=== PATIENT | male | born 1950 | race Caucasian/White ===

== ENCOUNTER 2020-10-29 11:58 | Outpatient (REF) | payer MEDICARE, BC, SELFPAY ==
[2020-10-29 14:06] LABS: Anion Gap 8.9 mmol/L (3-11); BUN 16 mg/dL (7-18); CO2 30.1 mmol/L (21.0-32.0); CREATININE 0.92 mg/dL (0.70-1.30); Calcium 9.1 mg/dL (8.5-10.1); Calculated LDL 83 mg/dL (<100); Chloride 99 mmol/L (98-107); Cholesterol 163 mg/dL (<200); Glucose 149 mg/dL (74-106); HDL Cholesterol 65 mg/dL (40-60); Potassium 4.2 mmol/L (3.5-5.1); Sodium 138 mmol/L (136-145); Triglyceride 79 mg/dL (<150)
== END 2020-10-29 12:18 ==
LOC: NCHCN 11:58
PROVIDERS: Visit Provider Internal Medicine
DX: I10 Essential (primary) hypertension (principal); Z13.220 Encounter for screening for lipoid disorders
CPT/HCPCS: 80048; 80061

== ENCOUNTER 2020-12-20 21:09 | Outpatient (REF) | payer MEDICARE, BC, SELFPAY ==
[2020-12-20 21:51] LABS: ALT 39 U/L (16-63); AST 20 U/L (15-37); Albumin 4.4 g/dL (3.4-5.0); Alkaline Phosphatase 50 U/L (46-116); Anion Gap 10.6 mmol/L (3-11); BUN 24 mg/dL (7-18); Bilirubin, Total 0.4 mg/dL (0.2-1.0); CO2 29.4 mmol/L (21.0-32.0); Calcium 9.9 mg/dL (8.5-10.1); Chloride 102 mmol/L (98-107); Glucose 111 mg/dL (74-106); Potassium 3.9 mmol/L (3.5-5.1); Sodium 142 mmol/L (136-145); Uric Acid 6.8 mg/dL (3.5-7.2)
[2020-12-22 09:51] LABS: HBs Antibody, Quant <3.1 mIU/mL (See Note); Hepatitis B Surface Ab Negative (See Note)
[2020-12-22 10:00] LABS: Hepatitis B Surface Ag Negative (Negative)
[2020-12-22 10:39] LABS: Hepatitis C Ab w Rflx HCV PCR Negative (Negative)
== END 2020-12-20 21:10 | disposition home or self-care (01) ==
LOC: NCHCN 21:09
PROVIDERS: Visit Provider Internal Medicine
DX: R94.5 Abnormal results of liver function studies (principal)
CPT/HCPCS: 80053; 86706; 86803; 87340; 84550

== ENCOUNTER 2022-05-02 11:12 | Outpatient (REF) | payer MEDICARE, BC, SELFPAY ==
[2022-05-02 15:49] LABS: COMMENT (LAB VIEW ONLY) 98.29 mg/dL; Microalb ug/mg Crea 12.3 ug/mg Cr
== END 2022-05-02 11:13 | disposition home or self-care (01) ==
LOC: NCHCN 11:12
PROVIDERS: Visit Provider Nurse Practitioner Family
DX: I10 Essential (primary) hypertension (principal); K76.0 Fatty (change of) liver, not elsewhere classified; R94.5 Abnormal results of liver function studies; E88.81 Metabolic syndrome and other insulin resistance
CPT/HCPCS: 82043; 82570

== ENCOUNTER 2023-08-13 12:53 | Outpatient (REF) | payer MEDICARE, BC, SELFPAY ==
[2023-08-13 16:05] LABS: COMMENT (LAB VIEW ONLY) 70.63 mg/dL
== END 2023-08-13 12:54 | disposition home or self-care (01) ==
LOC: NCHCN 12:53
PROVIDERS: Visit Provider Internal Medicine
DX: E11.9 Type 2 diabetes mellitus without complications (principal); F41.1 Generalized anxiety disorder
CPT/HCPCS: 82043; 82570

== ENCOUNTER 2024-08-11 17:20 | Outpatient (REF) | payer MEDICARE, BC, SELFPAY ==
[2024-08-11 22:16] LABS: COMMENT (LAB VIEW ONLY) 96.88 mg/dL; Microalb ug/mg Crea 7.4 ug/mg Cr
== END 2024-08-11 17:21 | disposition home or self-care (01) ==
LOC: NCHCN 17:20
PROVIDERS: Visit Provider Internal Medicine
DX: E11.9 Type 2 diabetes mellitus without complications (principal)
CPT/HCPCS: 82043; 82570

== ENCOUNTER 2024-11-04 14:03 | Outpatient (REF) | payer MEDICARE, BC, SELFPAY ==
[2024-11-04 15:30] LABS: HCT 43.2 % (40.0-50.0); HGB 14.3 g/dL (13.5-17.5); MCH 31.3 pg (27.0-33.0); MCHC 33.1 % (32.0-36.0); MCV 95 fL (80-95); MPV 9.8 fL (8.0-11.0); Platelet Count 183 10^3/uL (130-400); RBC 4.57 10^6/uL (4.36-5.78); RDW 12.8 % (11.8-14.1); RDW-SD 44.4 fL
[2024-11-04 16:13] LABS: ALT 24 U/L (16-63); AST 20 U/L (15-37); Albumin 4.1 g/dL (3.4-5.0); Alkaline Phosphatase 42 U/L (46-116); Anion Gap 9.3 mmol/L (3-11); BUN 22 mg/dL (7-18); Bilirubin, Total 0.35 mg/dL (0.2-1.0); CO2 25.7 mmol/L (21.0-32.0); CREATININE 0.9 mg/dL (0.70-1.30); Calcium 9.4 mg/dL (8.5-10.1); Calculated LDL 185 mg/dL (<100); Chloride 105 mmol/L (98-107); Cholesterol 280 mg/dL (<200); Estimated GFR 89.62 (mL/min/1.73m2); Glucose 111 mg/dL (74-106); HDL Cholesterol 77 mg/dL (40-60); Potassium 4.2 mmol/L (3.5-5.1); Sodium 140 mmol/L (136-145); Total Protein 7.7 g/dL (6.4-8.2); Triglyceride 91 mg/dL (<150)
== END 2024-11-04 14:04 | disposition home or self-care (01) ==
LOC: NCHCN 14:03
PROVIDERS: Visit Provider Internal Medicine
DX: I10 Essential (primary) hypertension (principal)
CPT/HCPCS: 80053; 80061; 85027

== ENCOUNTER 2025-09-21 12:15 | Outpatient (REF) | payer MEDICARE, BC, SELFPAY ==
[2025-09-21 16:42] LABS: Microalb ug/mg Crea 4.0 ug/mg Cr
== END 2025-09-21 12:16 | disposition home or self-care (01) ==
LOC: NCHCN 12:15
PROVIDERS: Visit Provider Internal Medicine
DX: I10 Essential (primary) hypertension (principal)
CPT/HCPCS: 82043; 82570